=== PATIENT | female | born 1950 | race Hispanic/Latino ===

== ENCOUNTER 2018-02-01 22:46 | Emergency (ER) | payer OTHER ==
--- OUTSIDE RECORDS SUMMARY | 2018-02-01 22:49 | XMS REPORT ---
:1950 Author Organization eClinicalWorks Care Team Providers Name Role Phone Kenneth Savage Provider Role Unavailable Allergies No Known Allergies Problems Problem Type Condition Code Onset Dates Condition Status Problem Tobacco use disorder F17.200 Active Problem Malaise and fatigue R53.81 Active Problem Allergic rhinitis, seasonal J30.2 Active Problem Microalbuminuria R80.9 Active Problem Vitamin D deficiency E55.9 Active Problem Hyperlipidemia E78.5 Active Problem Thrombocytopenia D69.6 Active Problem Elevated liver enzymes R74.8 Active Problem Diabetes type 2, uncontrolled E11.65 Active Problem Osteoporosis M81.0 Active Assessment Vitamin D deficiency E55.9 Active Assessment Tobacco use disorder F17.200 Active Assessment Hyperlipidemia E78.5 Active Assessment Diabetes type 2, uncontrolled E11.65 Active Assessment Microalbuminuria R80.9 Active Assessment Osteoporosis M81.0 Active Problem Psoriasis, unspecified L40.9 Active Medications Medication Code Code Instructions Start End Status Dosage System Date Date Alendronate [facility] 05907848882 70 MG Orally Sept Active 1 tablet Sodium once weekly 2017 Janumet XR [facility] 29564574176 50-1000 MG Active 2 tablets Orally Once a with day evening meal Lipitor [facility] 37111500540 40 MG Orally Active 1 tablet Once a day Cozaar [facility] 65784798268 25 MG Orally Active 1 tablet Once a day Jardiance [facility] 70078137333 25 MG Orally Sept Active 1 tablet Once a day 2017 Results No Known Results Summary Purpose eClinicalWorks Submission
--- OUTSIDE RECORDS SUMMARY | 2018-02-01 22:49 | XMS REPORT ---
:1950 Author Organization eClinicalWorks Care Team Providers Name Role Phone Hussein Kenneth Provider Role Unavailable Allergies, Adverse Reactions, Alerts Substance Reaction Event Type penicillin Info Not Available Drug Allergy Lisinopril Info Not Available Drug Allergy Problems Problem Type Condition Code Onset Dates [...] Assessment Tobacco use disorder F17.200 Active Assessment Elevated BP without diagnosis of R03.0 Active hypertension Assessment Hyperlipidemia E78.5 Active Assessment Diabetes type 2, uncontrolled E11.65 Active Assessment Microalbuminuria R80.9 Active Assessment Osteoporosis M81.0 Active Problem Psoriasis, unspecified L40.9 Active Medications Medication Code Code Instructions Start End Status Dosage System Date Date XR [facility] 02206268774 50-1000 MG Active 2 tablets Orally Once a with day evening meal Jardiance [facility] 85172544538 25 MG Orally Feb 12, Active 1 tablet Once a day 2017 Cozaar [facility] 78039620361 25 MG Orally Active 1 tablet Once a day Alendronate [facility] 72440937739 70 MG Orally Feb 12, Active 1 tablet Sodium once weekly 2017 Lipitor [facility] 61244674563 40 MG Orally Active 1 tablet Once a day Results No Known Results Summary Purpose eClinicalWorks Submission
--- OUTSIDE RECORDS SUMMARY | 2018-02-01 22:49 | XMS REPORT ---
:1950 Author Organization eClinicalWorks Care Team Providers Name Role Phone Hussein Kenneth Provider Role Unavailable Allergies No Known Allergies Problems Problem Type Condition Code Onset Dates Condition Status Problem Tobacco use disorder F17.200 Active Problem Malaise and fatigue R53.81 Active Problem Allergic rhinitis, seasonal J30.2 Active Problem Psoriasis, unspecified L40.9 Active Problem Microalbuminuria R80.9 Active Problem Vitamin D deficiency E55.9 Active Problem Hyperlipidemia E78.5 Active Problem Thrombocytopenia D69.6 Active Problem Elevated liver enzymes R74.8 Active Problem Diabetes type 2, uncontrolled E11.65 Active Problem Osteoporosis M81.0 Active Medications No Known Medications Results No Known Results Summary Purpose eClinicalWorks Submission
[2018-02-01] MEDS ORDERED: FENTANYL CITR 100 MCG/2 ML ONE (23:53)
[2018-02-01] MEDS ORDERED: ONDANSETRON 4 MG/2 ML VIAL ONE (23:53)
[2018-02-02 00:34] LABS: Absolute Monocytes 0.4 K/uL (0.1-1.3); Absolute Neutrophil 3.8 K/uL (1.8-8.0); Basophils % 0.5 % (0-1.3); Eosinophils % 4.4 % (0-4.4); Hematocrit 39.9 % (36.0-45.0); Lymphocytes % 31.1 % (15.3-44.8); MCH 29.3 pg (27.0-35.0); MCV 84.2 fL (80-100); MPV 11.5 fL (7.6-11.3); Monocytes % 5.8 % (3.3-12.3); RBC Red Blood Cell Count 4.74 M/uL (3.86-4.86)
[2018-02-02 00:38] LABS: ALT/SGPT 29 U/L (12-78); AST/SGOT 27 U/L (15-37); Alkaline Phosphatase 65 U/L (45-117); BUN Blood Urea Nitrogen 18 mg/dL (7-18); Bicarbonate 28 mmol/L (21-32); Bilirubin Direct < 0.1 mg/dL (0-0.2); Bilirubin Total 0.4 mg/dL (0.2-1.0); Glucose Level 142 mg/dL (74-106); Lipase 478 U/L (73-393); Potassium 4.1 mmol/L (3.5-5.1); Protein, Total 7.6 g/dL (6.4-8.2); Sodium Level 133 mmol/L (136-145)
[2018-02-02 01:10] LABS: Urine Bacteria <20 /HPF (<20); Urine Culture Reflex Order NOT NEEDED; Urine RBC <5 /HPF (NONE SEEN)
[2018-02-02 01:15] LABS: Urine Blood NEGATIVE (NEG); Urine Glucose NEGATIVE (NEG); Urine Protein 2+ (NEG); Urine Specific Gravity 1.015 (1.005-1.030); Urine pH 5.5 (5.0-7.0)
--- NOTE | 2018-02-02 01:44 | EDPHYS ---
Physician Documentation [facility] Name: Carri Perez Age: 67 yrs Sex: Female : 1950 Arrival Date: 02/01/2018 Time: 22:49 Bed 26 Private MD: Kenneth Savage ED Physician Robert Carter HPI: 02/01 23:35 This 67 yrs old Female presents to ER via Wheelchair with complaints of Flank cp Pain. 23:35 The patient complains of pain in the right low back. cp 23:35 Onset: The symptoms/episode began/occurred 2 hour(s) ago. cp 23:35 Associated signs and symptoms: Pertinent negatives: diarrhea, dysuria, fever, urinary cp frequency, hematuria, pain radiating to the lower extremities, vomiting. Historical: - Allergies: 23:00 PENICILLINS; bb - Home Meds: 23:00 Unable to obtain [Active]; bb - PMHx: 23:00 Diabetes - NIDDM; bb - PSHx: 23:00 ; Appendectomy; bb - Immunization history:: Adult Immunizations unknown. - Social history:: Smoking status: Patient uses tobacco products, 4 or 5 daily. - Ebola Screening: : No symptoms or risks identified at this time. ROS: 23:40 Constitutional: Negative for body aches, chills, fever, poor PO intake. cp 23:40 Eyes: Negative for injury, pain, redness, and discharge. cp 23:40 ENT: Negative for drainage from ear(s), ear pain, sore throat, difficulty swallowing, difficulty handling secretions. 23:40 Cardiovascular: Negative for chest pain, edema, palpitations. 23:40 Respiratory: Negative for cough, shortness of breath, wheezing. 23:40 Abdomen/GI: Negative for abdominal pain, nausea, vomiting, and diarrhea, black/tarry stool, rectal bleeding. 23:40 Back: Positive for flank pain, on the right, Negative for injury or acute deformity, decreased range of motion. 23:40 MS/extremity: Negative for injury or acute deformity, decreased range of motion, pain, paresthesias. 23:40 Skin: Negative for cellulitis, rash. 23:40 Neuro: Negative for altered mental status, headache, numbness, weakness. 23:40 All other systems are negative. Exam: 23:47 Constitutional: The patient appears in no acute distress, alert, awake, non-toxic, well cp developed, well nourished, uncomfortable. 23:47 Head/Face: Normocephalic, atraumatic. cp 23:47 Eyes: Periorbital structures: appear normal, Conjunctiva: normal, no exudate, no injection, Sclera: no appreciated abnormality, Lids and lashes: appear normal, bilaterally. 23:47 ENT: External ear(s): are unremarkable, Nose: is normal, Mouth: Lips: moist, Oral mucosa: pink and intact, moist, Posterior pharynx: is normal, airway is patent, no erythema, no exudate. 23:47 Neck: External neck: is normal, ROM/movement: is normal, is supple, without pain, no range of motions limitations, no nuchal rigidity. 23:47 Chest/axilla: Inspection: normal, Palpation: is normal, no crepitus, no tenderness. 23:47 Cardiovascular: Rate: normal, Rhythm: regular, Edema: is not appreciated, JVD: is not appreciated. 23:47 Respiratory: the patient does not display signs of respiratory distress, Respirations: normal, no use of accessory muscles, no retractions, no splinting, no tachypnea, labored breathing, is not present, Breath sounds: are clear throughout, no decreased breath sounds, no stridor, no wheezing. 23:47 Abdomen/GI: Inspection: abdomen appears normal, Palpation: soft, in all quadrants, moderate abdominal tenderness, in the posterior aspect of right lateral abdomen, anterior aspect of right lateral abdomen and right lower quadrant. 23:47 Back: pain, that is moderate, of the right low back, vertebral tenderness, is not appreciated, Straight leg raises: of both lower extremities does not illicit pain. 23:47 Musculoskeletal/extremity: Exam is negative for calf tenderness, decreased range of motion, injury, Perfusion: the patient is normally perfused throughout, Sensation intact. 23:47 Skin: cellulitis, is not appreciated, no rash present. 23:47 Neuro: Orientation: to person, place \T\ time. Mentation: is normal, Cerebellar function: is grossly normal, Motor: moves all fours, strength is normal, Sensation: is normal. Vital Signs: 23:00 BP 113 / 93; Pulse 74; Resp 18 S; Temp 97.8(O); Pulse Ox 100% on R/A; Weight 67.13 kg bb (R); Height 5 ft. 1 in. (154.94 cm) (R); Pain 10; 02/02 01:00 BP 131 / 77; Pulse 64; Resp 18; Pulse Ox 97% on R/A; Pain 3/10; mg2 02/01 23:00 Body Mass Index 27.96 (67.13 kg, 154.94 cm) bb 01:00 only when she moves mg2 MDM: 02/01 23:18 Patient medically screened. cp 02/02 00:00 Differential diagnosis: nephrolithiasis, pyelonephritis, UTI, diverticulitis, ruptured cp AAA, dissecting AAA, strain. 01:42 Data reviewed: vital signs, nurses notes, lab test result(s), radiologic studies, CT cp scan, and as a result, I will discharge patient. 01:42 Counseling: I had a detailed discussion with the patient and/or guardian regarding: the cp historical points, exam findings, and any diagnostic results supporting the discharge/admit diagnosis, lab results, radiology results, to return to the emergency department if symptoms worsen or persist or if there are any questions or concerns that arise at home. Response to treatment: the patient's symptoms have mildly improved after treatment. 02/01 23:33 Order name: Urine Dipstick--Ancillary (enter results); Complete Time: :33 mw2 02/02 01:33 Interpretation: Normal except: UPROT 2+. cp 02/01 23:38 Order name: Basic Metabolic Panel; Complete Time: 01:33 cp 02/02 01:33 Interpretation: Normal except: NA 133; CL 97; GLUC 142; GFR 71. 02/01 23:38 Order name: CBC with Diff; Complete Time: 01:33 cp 02/02 01:33 Interpretation: Normal except: PLT 127; MPV 11.5. cp 02/01 23:38 Order name: Creatinine for Radiology; Complete Time: : cp 02/01 23:38 Order name: Hepatic Function; Complete Time: 01: cp 02/02 01:34 Interpretation: Normal except: GLOB 3.6. cp 02/01 23:38 Order name: Lipase; Complete Time: 01: cp 02/01 23:38 Order name: Urine Microscopic Only; Complete Time: : cp 02/01 23:38 Order name: CT Stone Protocol cp 02/01 23:38 Order name: IV Saline Lock; Complete Time: 23:44 cp 02/01 23:38 Order name: Labs collected and sent; Complete Time: 23:44 cp 02/02 01:38 Order name: PO challenge; Complete Time: 01:56 cp Administered Medications: 02/01 23:52 Drug: Zofran 4 mg Route: IVP; Site: right antecubital; mg2 02/02 02:04 Follow up: Response: No adverse reaction; Marked relief of symptoms mg2 02/01 23:53 Drug: fentaNYL (PF) 25 mcg Route: IVP; Site: right antecubital; mg2 02/02 02:04 Follow up: Response: No adverse reaction; Marked relief of symptoms mg2 01:45 Not Given (Physician Discretion): HYDROcodone-acetaminophen 5 mg-325 mg 1 tabs PO once cp 01:55 Not Given (patient discharge already): TORadol 30 mg IVP once mg2 01:56 Drug: Flexeril 10 mg Route: PO; mg2 02:04 Follow up: Response: No adverse reaction; Medication administered at discharge. mg2 01:56 Drug: HYDROcodone-acetaminophen 5 mg-325 mg 1 tabs Route: PO; mg2 02:12 Follow up: Response: No adverse reaction; Medication administered at discharge. mg2 Disposition: 02/02/18 01:43 Discharged to Home. Impression: Low back pain - Right, Cholelithiasis. - Condition is Stable. - Discharge Instructions: Back Pain, Adult, Cholelithiasis, Back Exercises, [id number]. - Prescriptions for Anaprox DS 550 mg Oral Tablet - take 1 tablet by ORAL route every 12 hours As needed; 20 tablet. Tramadol 50 mg Oral Tablet - take 1 tablet by ORAL route every 8 hours As needed as needed; 15 tablet. - Medication Reconciliation Form, Thank You Letter, Antibiotic Education, Prescription Opioid Use form. - Follow up: Kenneth Savage, DO; When: 2 - 3 days; Reason: Recheck today's complaints. - Problem is new. - Symptoms have improved. Signatures: Dispatcher [employer] Marii Sterling RN RN Mathew Pearl PA PA Ross Blood RN RN mg2 Corrections: (The following items were deleted from the chart) 02:12 01:43 02/02/2018 01:43 Discharged to Home. Impression: Low back pain - Right; mg2 Cholelithiasis. Condition is Stable. Forms are Medication Reconciliation Form, Thank You Letter, Antibiotic Education, Prescription Opioid Use. Follow up: Kenneth Savage; When: 2 - 3 days; Reason: Recheck today's complaints. Problem is new. Symptoms have improved. cp
--- NOTE | 2018-02-02 01:44 | ER ---
Nurse's Notes [facility] Name: Carri Perez Age: 67 yrs Sex: Female : 1950 Arrival Date: 02/01/2018 Time: 22:49 Bed 26 Private MD: Kenneth Savage Diagnosis: Low back pain-Right;Cholelithiasis Presentation: 02/01 22:58 Presenting complaint: Patient states: she started having right flank pain which is bb intermittent and sharp approx 2 hours ago pt denies urinary symptoms and denies vomiting or diarrhea. Transition of care: patient was not received from another setting of care. Onset of symptoms was February 01, 2018. Risk Assessment: Do you want to hurt yourself or someone else? Patient reports no desire to harm self or others. Initial Sepsis Screen: Does the patient meet any 2 criteria? No. Patient's initial sepsis screen is negative. Does the patient have a suspected source of infection? No. Patient's initial sepsis screen is negative. Care prior to arrival: None. 22:58 Method Of Arrival: Wheelchair bb 22:58 Acuity: ELOISE 3 bb Historical: - Allergies: 23:00 PENICILLINS; bb - Home Meds: 23:00 Unable to obtain [Active]; bb - PMHx: 23:00 Diabetes - NIDDM; bb - PSHx: 23:00 ; Appendectomy; bb - Immunization history:: Adult Immunizations unknown. - Social history:: Smoking status: Patient uses tobacco products, 4 or 5 daily. - Ebola Screening: : No symptoms or risks identified at this time. Screenin:53 Abuse screen: Denies threats or abuse. Denies injuries from another. Nutritional mg2 screening: No deficits noted. Tuberculosis screening: No symptoms or risk factors identified. Fall Risk IV access (20 points). Assessment: 23:54 General: Appears uncomfortable, Behavior is calm, cooperative. Pain: Complains of pain mg2 in lower abdomen and right flank Pain does not radiate. Pain currently is 8 out of 10 on a pain scale. Quality of pain is described as aching, Pain began gradually, Is intermittent. Neuro: Level of Consciousness is awake, alert, obeys commands, Oriented to person, place, time, situation. Cardiovascular: Capillary refill < 3 seconds Patient's skin is warm and dry. GI: Reports lower abdominal pain. 23:55 Respiratory: Airway is patent Respiratory effort is even, unlabored, Respiratory mg2 pattern is regular, symmetrical. : Urine is clear. EENT: No signs and/or symptoms were reported regarding the EENT system. Derm: Skin is intact, is healthy with good turgor, Skin is pink, warm \T\ dry. normal. Musculoskeletal: Circulation, motion, and sensation intact. Capillary refill < 3 seconds. Vital Signs: 23:00 BP 113 / 93; Pulse 74; Resp 18 S; Temp 97.8(O); Pulse Ox 100% on R/A; Weight 67.13 kg bb (R); Height 5 ft. 1 in. (154.94 cm) (R); Pain 10; 02/02 01:00 BP 131 / 77; Pulse 64; Resp 18; Pulse Ox 97% on R/A; Pain 3/10; mg2 02/01 23:00 Body Mass Index 27.96 (67.13 kg, 154.94 cm) bb 01:00 only when she moves mg2 ED Course: 02/01 22:49 Patient arrived in ED. es 22:49 Kenneth Savage DO is Private Physician. es 22:59 Triage completed. bb 23:00 Arm band placed on Patient placed in waiting room. Family accompanied patient. bb 23:18 Mathew Olivas PA is PHCP. cp 23:18 Robert Carter MD is Attending Physician. cp 23:34 Ross Reinoso RN is Primary Nurse. mg2 23:53 No provider procedures requiring assistance completed. Inserted saline lock: 20 gauge mg2 in right antecubital area, using aseptic technique. Blood collected. 23:55 Patient has correct armband on for positive identification. Pulse ox on. NIBP on. mg2 23:[address] via wheelchair. kw1 02/02 00:07 CT completed. Patient tolerated procedure well. Patient moved back from CT. kw1 00:08 CT Stone Protocol In Process Unspecified. EDMS 01:42 Kenneth Savage DO is Referral Physician. cp 02:05 IV discontinued, intact, bleeding controlled, No redness/swelling at site. Pressure mg2 dressing applied. Administered Medications: 02/01 23:52 Drug: Zofran 4 mg Route: IVP; Site: right antecubital; mg2 02/02 02:04 Follow up: Response: No adverse reaction; Marked relief of symptoms mg2 02/01 23:53 Drug: fentaNYL (PF) 25 mcg Route: IVP; Site: right antecubital; mg2 02/02 02:04 Follow up: Response: No adverse reaction; Marked relief of symptoms mg2 01:45 Not Given (Physician Discretion): HYDROcodone-acetaminophen 5 mg-325 mg 1 tabs PO once cp 01:55 Not Given (patient discharge already): TORadol 30 mg IVP once mg2 01:56 Drug: Flexeril 10 mg Route: PO; mg2 02:04 Follow up: Response: No adverse reaction; Medication administered at discharge. mg2 01:56 Drug: HYDROcodone-acetaminophen 5 mg-325 mg 1 tabs Route: PO; mg2 02:12 Follow up: Response: No adverse reaction; Medication administered at discharge. mg2 Outcome: 01:43 Discharge ordered by MD. cp 02:05 Discharged to home via wheelchair, with family. mg2 02:05 Condition: stable 02:05 Discharge instructions given to patient, family, Instructed on discharge instructions, follow up and referral plans. medication usage, Demonstrated understanding of instructions, follow-up care, medications, Prescriptions given X 2. 02:12 Patient left the ED. mg2 Signatures: Dispatcher [employer] Sheron Pelayo Brenda, RN RN Mathew Pearl PA PA cp Wilhelm, Kimberly kw1 Ross Reinoso RN RN mg2
[2018-02-02] MEDS ORDERED: CYCLOBENZAPRINE 10 MG TAB ONE (01:55)
[2018-02-02] MEDS ORDERED: HYDROCODONE/APAP 5/325 MG TAB ONE (01:55)
--- NOTE | 2018-02-02 11:30 | RAD REPORT ---
EXAM DESCRIPTION: CT - Stone Protocol - 02/02/2018 5:57 am CLINICAL HISTORY: Flank pain. FLANK PAIN COMPARISON: CT ABD PELVIS W CONTRAST dated 07/09/2008 TECHNIQUE: Axial images were obtained without oral or IV contrast. Lack of contrast limits solid org an and vascular assessment. The [id number] spans the entirety of the system partially obscuring uppermost abdomen and lung bases. Coronal reformatted images were obtained and reviewed. All CT scans are performed using dose optimization technique as appropriate and may include automated exposure control or mA/KV adjustment according to patient size. FINDINGS: The lower lung montero are clear. Cholelithiasis. Imaged portions of the liver and spleen show no suspicious findings on non-contrast imaging. The panc reas and right adrenal gland are normal.1.5 cm left adrenal adenoma. No pathologic lymphadenopathy in the abdomen or pelvis. No urinary tract stones or obstructive uropathy. No bowel obstruction, free air, free fluid or abscess. Appendectomy. Moderate lumbar degenerative changes. IMPRESSION: No urinary tract stones or obstructive uropathy. Cholelithiasis.
== END 2018-02-02 02:12 | disposition home or self-care (01) ==
LOC: ER 22:46
DX: K80.20 Calculus of gallbladder without cholecystitis without obstruction (principal); Z88.0 Allergy status to penicillin; Z72.0 Tobacco use
CPT/HCPCS: 36415; 74176; 76377; 80048; 80076; 83690; 85025; 96374; 96375; 99284; J2405; J3010; 81003; 81015

== ENCOUNTER 2018-08-10 00:23 | Emergency (ER) | payer OTHER ==
--- OUTSIDE RECORDS SUMMARY | 2018-08-10 00:26 | XMS REPORT ---
[...] End Status Dosage System Date Date Alendronate [facility] 06791795653 70 MG Orally Sept Active 1 tablet Sodium once weekly 2017 Janumet XR [facility] 76821197561 50-1000 MG Active 2 tablets Orally Once a with day evening meal Lipitor [facility] 30935958278 40 MG Orally Active 1 tablet Once a day Cozaar [facility] 58306855458 25 MG Orally Active 1 tablet Once a day Jardiance [facility] 37750280884 25 MG Orally Sept Active 1 tablet Once a day 2017 Results No Known Results Summary Purpose eClinicalWorks Submission
--- OUTSIDE RECORDS SUMMARY | 2018-08-10 00:27 | XMS REPORT ---
:1950 Author Organization eClinicalWorks Care Team Providers Name Role Phone Trey Savageh Provider Role Unavailable Allergies, Adverse Reactions, Alerts Substance Reaction Event Type penicillin Info Not Available Drug Allergy Lisinopril Info Not Available Drug Allergy Problems Problem Type Condition Code Onset Dates Condition Status Problem Malaise and fatigue R53.81 Active Problem Thrombocytopenia D69.6 Active Problem Elevated liver enzymes R74.8 Active Problem Psoriasis, unspecified L40.9 Active Assessment Type 2 diabetes mellitus with other E11.29 Active diabetic kidney complication Problem Hyperlipidemia E78.5 Active Problem Type 2 diabetes mellitus with other E11.29 Active diabetic kidney complication Problem Diabetes type 2, uncontrolled E11.65 Active Problem Osteoporosis M81.0 Active Problem Microalbuminuria R80.9 Active Problem Vitamin D deficiency E55.9 Active Assessment Tobacco use disorder F17.200 Active Assessment Osteoporosis M81.0 Active Assessment Elevated BP without diagnosis of R03.0 Active hypertension Assessment Vitamin D deficiency E55.9 Active Assessment Diabetes type 2, uncontrolled E11.65 Active Assessment Hyperlipidemia E78.5 Active Problem Tobacco use disorder F17.200 Active Assessment Proteinuria, unspecified R80.9 Active Problem Allergic rhinitis, seasonal J30.2 Active Medications Medication Code System Code Instructions Start End Date Status Dosage Date XR [facility] 10517338408 50-1000 MG Active 2 tablets Orally Once a with day evening meal Jardiance [facility] 48880170728 25 MG Orally Active 1 tablet Once a day Jardiance [facility] 53560025379 25 MG Orally May 14, August 12, Active 1 tablet Once a day 2018 2018 Cozaar [facility] 17464895257 25 MG Orally Active 1 tablet Once a day Lipitor [facility] 50871329251 40 MG Orally Active 1 tablet Once a day Results No Known Results Summary Purpose eClinicalWorks Submission
--- OUTSIDE RECORDS SUMMARY | 2018-08-10 00:27 | XMS REPORT ---
[...] System Date Date XR [facility] 12688710040 50-1000 MG Active 2 tablets Orally Once a with day evening meal Jardiance [facility] 90540167843 25 MG Orally Feb 12, Active 1 tablet Once a day 2017 Cozaar [facility] 79759830692 25 MG Orally Active 1 tablet Once a day Alendronate [facility] 11343384759 70 MG Orally Feb 12, Active 1 tablet Sodium once weekly 2017 Lipitor [facility] 03715104880 40 MG Orally Active 1 tablet Once a day Results No Known Results Summary Purpose eClinicalWorks Submission
[2018-08-10] MEDS ORDERED: MEPERIDINE HCL 50 MG/ML AMP ONE (02:49)
[2018-08-10] MEDS ORDERED: ONDANSETRON 4 MG/2 ML VIAL ONE (02:49)
--- NOTE | 2018-08-10 06:03 | ER ---
Nurse's Notes [facility] Name: Carri Perez Age: 68 yrs Sex: Female : 1950 Arrival Date: 08/10/2018 Time: 00:27 Bed 25 Private MD: Diagnosis: Cervical spondylosis Presentation: 08/10 00:44 Presenting complaint: Patient states: I am having neck pain for the last three days. la1 Transition of care: patient was not received from another setting of care. Onset of symptoms was August 10, 2018. Risk Assessment: Do you want to hurt yourself or someone else? Patient reports no desire to harm self or others. Initial Sepsis Screen: Does the patient meet any 2 criteria? No. Patient's initial sepsis screen is negative. Does the patient have a suspected source of infection? No. Patient's initial sepsis screen is negative. Care prior to arrival: None. 00:44 Method Of Arrival: Ambulatory la1 00:44 Acuity: ELOISE 4 la1 Historical: - Allergies: 00:45 PENICILLINS; la1 - PMHx: 00:45 Diabetes - NIDDM; la1 - Immunization history:: Adult Immunizations up to date. - Social history:: Smoking status: Patient uses tobacco products, denies chronic smoking, but will smoke occasionally. - Ebola Screening: : No symptoms or risks identified at this time. Screenin:20 Abuse screen: Denies threats or abuse. Denies injuries from another. Nutritional mg2 screening: No deficits noted. Tuberculosis screening: No symptoms or risk factors identified. Fall Risk None identified. Assessment: 01:32 General: Appears in no apparent distress. comfortable, Behavior is calm, cooperative. mg2 Pain: Complains of pain in nape Pain does not radiate. Pain currently is 6 out of 10 on a pain scale. Quality of pain is described as aching, Pain began gradually, 2-3 days ago. Is intermittent. Neuro: Level of Consciousness is awake, alert, obeys commands, Oriented to person, place, time, situation. Cardiovascular: Capillary refill < 3 seconds Patient's skin is warm and dry. Respiratory: Airway is patent Respiratory effort is even, unlabored, Respiratory pattern is regular, symmetrical. GI: No signs and/or symptoms were reported involving the gastrointestinal system. : No signs and/or symptoms were reported regarding the genitourinary system. EENT: Reports pain in right eye and left eye. Derm: Skin is intact, is healthy with good turgor, Skin is pink, warm \T\ dry. normal. Musculoskeletal: Circulation, motion, and sensation intact. Capillary refill < 3 seconds, Swelling present in back of neck Reports pain in back of neck. 03:30 Reassessment: Patient is alert, oriented x 3, equal unlabored respirations, skin fu warm/dry/pink. 04:30 Reassessment: Patient is alert, oriented x 3, equal unlabored respirations, skin fu warm/dry/pink. Vital Signs: 00:45 Pulse 83; Resp 16; Temp 97.6; Pulse Ox 100% on R/A; Weight 65.77 kg; Height 5 ft. 1 in. la1 (154.94 cm); Pain 10/10; 00:47 BP 124 / 50; la1 01:35 BP 120 / 53; Pulse 77; Resp 18; Temp 98(O); Pulse Ox 100% on R/A; mg2 02:36 BP 119 / 54; Pulse 80; Resp 19; Pulse Ox 98% ; Pain 8/10; fu 05:58 BP 117 / 54; Pulse 70; Resp 16; Pain 6/10; fu 00:45 Body Mass Index 27.40 (65.77 kg, 154.94 cm) la1 ED Course: 00:27 Patient arrived in ED. es 00:45 Triage completed. la1 00:46 Arm band placed on left wrist. la1 01:20 Ross Reinoso RN is Primary Nurse. mg2 01:20 No provider procedures requiring assistance completed. Patient did not have IV access mg2 during this emergency room visit. 01:34 Patient has correct armband on for positive identification. Pulse ox on. NIBP on. Door mg2 closed. Warm blanket given. 02:18 Robert Carter MD is Attending Physician. pkl 03:16 Primary Nurse role handed off by Ross Reinoso RN fu 03:16 James Ruffin, KADEEM is Primary Nurse. fu 04:30 CT C Spine In Process Unspecified. EDMS 05:49 Appears to be sleeping. fu 06:05 Dr. Carter in patient's room. fu Administered Medications: 02:42 Drug: Zofran 4 mg Route: IM; Site: left deltoid; fu 02:44 Drug: Demerol 50 mg Route: IM; Site: right deltoid; fu 06:07 Drug: [place] (7.5 mg-325 mg) 1 tabs Route: PO; fu Outcome: 06:03 Discharge ordered by . marques 06:09 Discharged to home ambulatory, with family. fu 06:09 Condition: stable 06:09 Discharge instructions given to patient, Instructed on discharge instructions, follow up and referral plans. Demonstrated understanding of instructions, medications, Prescriptions given X 2. 06:17 Patient left the ED. fu Signatures: Dispatcher [employer] Robert Valladares MD MD pkl Salyer, Edna es Attema, Lee RN RN la1 James Ruffin RN RN fu Gardose, Michele, RN RN mg2
--- NOTE | 2018-08-10 06:04 | EDPHYS ---
Physician Documentation [facility] Name: Carri Perez Age: 68 yrs Sex: Female : 1950 Arrival Date: 08/10/2018 Time: 00:27 Bed 25 Private MD: ED Physician Robert Carter HPI: 08/10 02:31 This 68 yrs old Female presents to ER via Ambulatory with complaints of Neck pkl Problem. 02:31 The patient or guardian complains of decreased range of motion, pain, that is acute. pkl The symptoms are located right side neck. Onset: The symptoms/episode began/occurred 3 day(s) ago. Associated signs and symptoms: The patient has no apparent associated signs or symptoms. Historical: - Allergies: 00:45 PENICILLINS; la1 - PMHx: 00:45 Diabetes - NIDDM; la1 - Immunization history:: Adult Immunizations up to date. - Social history:: Smoking status: Patient uses tobacco products, denies chronic smoking, but will smoke occasionally. - Ebola Screening: : No symptoms or risks identified at this time. ROS: 02:31 Eyes: Negative for injury, pain, redness, and discharge, ENT: Negative for injury, pkl pain, and discharge. 02:31 Neck: Positive for pain with movement, of the right side neck. Exam: 02:31 Head/Face: Normocephalic, atraumatic. Eyes: Pupils equal round and reactive to light, pkl extra-ocular motions intact. Lids and lashes normal. Conjunctiva and sclera are non-icteric and not injected. Cornea within normal limits. Periorbital areas with no swelling, redness, or edema. ENT: Nares patent. No nasal discharge, no septal abnormalities noted. Tympanic membranes are normal and external auditory canals are clear. Oropharynx with no redness, swelling, or masses, exudates, or evidence of obstruction, uvula midline. Mucous membranes moist. 02:31 Neck: ROM/movement: pain, that is moderate, with rotation to the right. 02:31 Chest/axilla: Exam negative for acute changes. 02:31 Cardiovascular: Rate: normal, Rhythm: regular. 02:31 Respiratory: the patient does not display signs of respiratory distress, Respirations: normal, Breath sounds: are clear throughout. 02:31 Abdomen/GI: Bowel sounds: normal, Palpation: abdomen is soft and non-tender, in all quadrants. 02:31 Back: Exam negative for acute changes. 02:31 : Exam negative for acute changes. 02:31 Musculoskeletal/extremity: Exam is negative for acute changes. 02:31 Skin: Exam negative for rash. 02:31 Neuro: Orientation: is normal, Mentation: is normal, Cranial nerves: grossly normal, Motor: is normal. Vital Signs: 00:45 Pulse 83; Resp 16; Temp 97.6; Pulse Ox 100% on R/A; Weight 65.77 kg; Height 5 ft. 1 in. la1 (154.94 cm); Pain 10/10; 00:47 BP 124 / 50; la1 01:35 BP 120 / 53; Pulse 77; Resp 18; Temp 98(O); Pulse Ox 100% on R/A; mg2 02:36 BP 119 / 54; Pulse 80; Resp 19; Pulse Ox 98% ; Pain 8/10; fu 05:58 BP 117 / 54; Pulse 70; Resp 16; Pain 6/10; fu 00:45 Body Mass Index 27.40 (65.77 kg, 154.94 cm) la1 MDM: 02:18 Patient medically screened. pkl 02:35 Data reviewed: vital signs, nurses notes. pkl 06:01 Data reviewed: radiologic studies, CT scan. pkl 06:04 ED course: Discussed CT Scan result with patient. Advised MRI cervical spines if pkl symptoms not better. Patient understood.. 08/10 02:22 Order name: CT C Spine pkl Administered Medications: 02:42 Drug: Zofran 4 mg Route: IM; Site: left deltoid; fu 02:44 Drug: Demerol 50 mg Route: IM; Site: right deltoid; fu 06:07 Drug: [place] (7.5 mg-325 mg) 1 tabs Route: PO; fu Disposition: 08/10/18 06:03 Discharged to Home. Impression: Cervical spondylosis. - Condition is Stable. - Prescriptions for Ultram 50 mg Oral Tablet - take 1 tablet by ORAL route every 8 hours As needed; 30 tablet. Diclofenac Sodium 75 mg Oral Tablet Sustained Release - take 1 tablet by ORAL route 2 times per day; 30 tablet. - Medication Reconciliation Form, Thank You Letter, Antibiotic Education, Prescription Opioid Use form. - Follow up: Private Physician; When: 2 - 3 days; Reason: Re-evaluation by your physician. - Problem is new. - Symptoms have improved. Signatures: Dispatcher [employer] Robert Valladares MD MD pkl Dwight Baker RN RN la1 James Ruffin RN RN fu Corrections: (The following items were deleted from the chart) 06:17 06:03 08/10/2018 06:03 Discharged to Home. Impression: Cervical spondylosis. Condition fu is Stable. Forms are Medication Reconciliation Form, Thank You Letter, Antibiotic Education, Prescription Opioid Use. Follow up: Private Physician; When: 2 - 3 days; Reason: Re-evaluation by your physician. Problem is new. Symptoms have improved. pkl
[2018-08-10] MEDS ORDERED: HYDROCODONE/APAP 7.5/325 MG TAB ONE (06:18)
--- NOTE | 2018-08-12 10:45 | RAD REPORT ---
EXAM DESCRIPTION: CT - C Spine Wo Con - 08/10/2018 4:29 am CLINICAL HISTORY: The patient is 68 years old and is Female; PAIN TECHNIQUE: Axial computed tomography images of the cervical spine without intravenous contrast. Royer nal reformatted images were created and reviewed. This CT exam was performed using one or more of t he following dose reduction techniques: automated exposure control, adjustment of the mA and/or kV according to patient size, and/or use of iterative reconstruction technique. COMPARISON: No relevant prior studies available. FINDINGS: VERTEBRAE: The vertebral body heights and alignment are maintained. No acute fracture. DISCS/SPINAL CANAL/NEURAL FORAMINA: There is multi-level intervertebral disc height loss. There are disc-osteophyte complexes at several levels, with associated mild spinal canal narrowing. There i s also facet hypertrophy and uncovertebral joint osteophytosis, with associated multilevel neural for aminal narrowing. SOFT TISSUES: The soft tissues are normal. LUNG APICES: The lung apices are clear. IMPRESSION: Examination is slightly limited secondary to the lack sagittal reconstructions. Spondylosis of the cervical spine without acute findings. Electronically signed by: Leslie Black MD 08/10/2018 5:32 AM CDT Due to temporary technical issues with the PACS/Fluency reporting system, reports are being signed by the in house radiologist as a courtesy to ensure prompt reporting. The interpreting radiologist is f ully responsible for the content of the report.
== END 2018-08-10 06:17 | disposition home or self-care (01) ==
LOC: ER 00:23
DX: M47.812 Spondylosis without myelopathy or radiculopathy, cervical region (principal); E11.9 Type 2 diabetes mellitus without complications; Z88.0 Allergy status to penicillin
CPT/HCPCS: 72125; 96372; 99284; J2175; J2405

== ENCOUNTER 2020-06-17 17:33 | Emergency (ER) | payer OTHER ==
--- OUTSIDE RECORDS SUMMARY | 2020-06-17 17:35 | XMS REPORT | Continuity of Care Document ---
:1950 Author Organization [facility] t Address [address] [place] [address] Care Team Providers Name Role Phone Unavailable Unavailable Unavailable Problems Condition Condition Condition Status Onset Resolution Last Treating Co mments Source Name Details Category Date Date Treatment Clinician Date Tobacco Tobacco Problem Active [facility] disorder disorder [facility] Malaise Malaise Problem Active [facility] - fatigue fatigue [facility] Allergic Allergic Problem Active [facility] rhinitis, rhinitis, [facility] - seasonal seasonal [facility] a l [facility] Proteinuri Proteinuri Diagnosis Active [facility] a, a, [facility] - unspecifie unspecifie Me moria d d l Outpat[facility] ent Clinics Vitamin D Vitamin D Diagnosis Active [facility] deficiency deficiency Beth kes - [facility] Hyperlipid Hyperlipid Diagnosis Active [facility] emia emia [facility] Thrombocyt Thrombocyt Problem Active [facility] openia openia [facility] Elevated Elevated Problem Active [facility] liver liver [facility] - enzymes enzymes [facility] Diabetes Diabetes Diagnosis Active [facility] type 2, type 2, [facility] - uncontroll uncontroll Me moria ed ed l [facility] Osteoporos Osteoporos Diagnosis Active [facility] is is [facility] Psoriasis, Psoriasis, Problem Active [facility] unspecifie unspecifie Beth kes - d d [facility] l [facility] ent [facility] Type 2 Type [address] [facility] diabetes diabetes [facility] - mellitus mellitus Memori a with other with other l diabetic diabetic Outpat i kidney kidney ent complicati complicati Cl inics on on Noncomplia Noncomplia Diagnosis Active [facility] nce nce [facility] - w/medicati w/medicati Me moria on on l treatment treatment Outp ati due to due to ent intermit intermit Clinic s use of use of medication medication Hypoalbumi Hypoalbumi Problem Active [facility] nemia nemia [facility] - Memoria l [facility] Malnutriti Malnutriti Problem Active [facility] on, on, [facility] - unspecifie unspecifie Me moria d type d type l [facility] Essential Essential Problem Active [facility] hypertensi hypertensi Beth kes - on on Memoria l [facility] Allergies, Adverse Reactions, Alerts Allergy Allergy Status Severity Reaction(s) Onset Inactive Treating Comm ents Source Name Type Date Date Clinician penicill Adverse Active Info Not [facility] Reaction Available [facility] Lisinopr Adverse Active Info Not [facility] il Reaction Available [facility] Medications Ordered Filled Start Stop Current Ordering Indication Dosage Frequency Signature Comments Components Source Medication Medication Date Date Medication? Clinician (SIG) Name Name Janumet XR Janumet XR Yes Kenneth [address] [facility] - evening Memoria meal l [facility] Lipitor Lipitor Yes Kenneth [address] [facility] Cozaar Cozaar Yes Kenneth 1 tablet [facility] Jardiance Jardiance Yes Kenneth [address] [facility] Procedures This patient has no known procedures. Encounters Start End Encounter Admission Attending Care Care Encounter Source Date/Time Date/Time Type Type Clinicians Facility Department ID 2019-11-09 2019-11-09 [facility] [id number] [facility] 10:30:00 10:30:00 [place] 2019-11-02 2019-11-02 [facility] [id number] [facility] [address] 08:45:00 08:45:00 t [facility] 2019-07-16 2019-07-16 [facility] [id number] 10:00:00 10:00:00 [place] [facility] 2018-05-14 2018-05-14 [facility] [id number] 16:00:00 16:00:00 [place] [facility] [email or web address] [facility] Outpati ent Clinics 2017-11-14 2017-11-14 [facility] [id number] 13[facility]45:00 13:45:00 t [employer] - [email or web address] [facility] Outpat[facility] ent Clinics 2017-11-06 2017-11-06 [facility] [id number] 11:46:00 11:46:00 t [facility] Outpat[facility] Clinics 2017-11-04 2017-11-04 [facility] [id number] 14:22:00 14:22:00 t [facility] Outpat[facility] Clinics 2017-10-18 2017-10-18 [facility] [id number] 09[facility]00:00 09:00:00 t [facility] Outpat[facility] ent Clinics Results This patient has no known results.
[2020-06-17 18:14] LABS: Absolute Lymphocytes (CBC) 0.8 K/uL (0.7-4.9); Basophils % 0.3 % (0-1.3); Lymphocytes % 6.5 % (15.3-44.8); MPV 9.6 fL (7.6-11.3); RBC Red Blood Cell Count 5.17 M/uL (3.86-4.86)
[2020-06-17 18:40] LABS: Albumin 3.2 g/dL (3.4-5.0); Bilirubin Direct 0.1 mg/dL (0-0.2); Bilirubin Total 0.4 mg/dL (0.2-1.0); Potassium 3.4 mmol/L (3.5-5.1)
[2020-06-17 18:49] LABS: Blood Morphology Comment NOT SEEN (NOT SEEN); Platelet Estimate ADEQ
[2020-06-17] MEDS ORDERED: KCL 20 MEQ/100 mL IVPB 20 MEQ/100 ML BAG IV ONE (19:33)
[2020-06-17] MEDS ORDERED: NA CHLORIDE 0.9% 0 ML ONE (19:33)
[2020-06-17] MEDS ORDERED: PIPER/TAZO/NS 3.375gm 3.375 GM/100 ML BAG ONE (19:33)
[2020-06-17] MEDS ORDERED: NA CHLORIDE 0.9% 100 ML ONE (19:46)
--- NOTE | 2020-06-17 20:08 | RAD REPORT ---
EXAM DESCRIPTION: CT - Abdomen Pelvis W Contrast - 06/17/2020 7:53 pm CLINICAL HISTORY: Abdominal pain COMPARISON: 2008 and 1999 TECHNIQUE: Computed axial tomography of the abdomen pelvis was obtained. 100 cc Isovue-300 was admin istered intravenously. Oral contrast was not requested which limits evaluation of bowel. All CT scans are performed using dose optimization technique as appropriate and may include automated exposure control or mA/KV adjustment according to patient size. FINDINGS: The liver, spleen, pancreas, right adrenal and kidneys appear unremarkable. Small left adrenal mass unchanged consistent with an adenoma. Multiple gallstones. The gallbladder wall is not thickened. There is no evidence of diverticulitis. Fluid throughout nondilated small bowel Atherosclerosis is noted. IMPRESSION: Cholelithiasis without evidence cholecystitis Fluid throughout nondilated small bowel may indicate an enteritis
--- NOTE | 2020-06-17 20:08 | RAD REPORT ---
EXAM DESCRIPTION: US - Abdomen Exam Limited - 06/17/2020 6:48 pm CLINICAL HISTORY: Abdominal pain./right upper quadrant COMPARISON: None. FINDINGS: Multiple gallstones. The gallbladder wall is not thickened The biliary tree is normal caliber. IMPRESSION: Cholelithiasis without evidence cholecystitis
[2020-06-17] MEDS ORDERED: FAMOTIDINE 20 MG/2 ML VIAL IV ONE (20:26)
[2020-06-17 21:00] LABS: Urine Blood 1+ (Negative); Urine Glucose Negative (Negative); Urine Protein 3+ (Negative)
--- NOTE | 2020-06-17 21:03 | EDPHYS ---
Physician Documentation [facility] Name: Carri Perez Age: 70 yrs Sex: Female : 1950 Arrival Date: 06/17/2020 Time: 17:34 Bed 2 Private MD: Hussein [facility] ED Physician Shanda Foote HPI: 06/17 17:44 This 70 yrs old Female presents to ER via EMS with complaints of upper abd ma2 pain . 17:44 Onset: The symptoms/episode began/occurred gradually, 2 day(s) ago. Associated signs ma2 and symptoms: Pertinent positives: nausea, vomiting, and diarrhea, Pertinent negatives: blood in stools, shortness of breath, vaginal discharge. Severity of pain: At its worst the pain was moderate in the emergency department the pain is unchanged. The patient has not experienced similar symptoms in the past, The patient has experienced a previous episode. Historical: - Allergies: 17:44 PENICILLINS; jl7 - PMHx: 17:44 Diabetes - NIDDM; jl7 - Immunization history:: Adult Immunizations unknown. - Social history:: Smoking status: unknown. - Family history:: not pertinent. ROS: 17:44 Constitutional: Negative for fever, chills, and weight loss. ma2 17:44 All other systems are negative. Exam: 17:44 Constitutional: This is a well developed, well nourished patient who is awake, alert, ma2 and in no acute distress. Chest/axilla: Normal chest wall appearance and motion. Nontender with no deformity. No lesions are appreciated. Cardiovascular: Regular rate and rhythm with a normal S1 and S2. No gallops, murmurs, or rubs. Normal PMI, no JVD. No pulse deficits. Respiratory: Lungs have equal breath sounds bilaterally, clear to auscultation and percussion. No rales, rhonchi or wheezes noted. No increased work of breathing, no retractions or nasal flaring. Abdomen/GI: epigastric abd pian and ttp, otherwise Soft, non-tender, with normal bowel sounds. No distension or tympany. No guarding or rebound. Back: No spinal tenderness. No costovertebral tenderness. Full range of motion. MS/ Extremity: Pulses equal, no cyanosis. Neurovascular intact. Full, normal range of motion. Neuro: Awake and alert, GCS 15, oriented to person, place, time, and situation. Cranial nerves II-XII grossly intact. Motor strength 5/5 in all extremities. Sensory grossly intact. Cerebellar exam normal. Normal gait. Vital Signs: 17:39 BP 128 / 50; Pulse 93; Resp 15; Temp 97.9; Pulse Ox 99% on R/A; jl7 20:00 BP 148 / 53; Pulse 88; Resp 18; Pulse Ox 96% ; wh 21:30 BP 150 / 51; Pulse 92; Resp 18; Pulse Ox 97% on R/A; wh MDM: 17:44 Patient medically screened. ma2 17:44 Differential diagnosis: diverticulitis, gastritis, gastroesophageal reflux disease, ma2 Irritable bowel syndrome, pancreatitis, urinary tract infection. 20:55 Data reviewed: vital signs, nurses notes, lab test result(s), radiologic studies, CT jr8 scan. Data interpreted: Pulse oximetry: on room air is 99 %. Interpretation: normal. Counseling: I had a detailed discussion with the patient and/or guardian regarding: the historical points, exam findings, and any diagnostic results supporting the discharge/admit diagnosis, lab results, radiology results, the need for outpatient follow up, a family practitioner, a director veterinary, to return to the emergency department if symptoms worsen or persist or if there are any questions or concerns that arise at home. Response to treatment: the patient's symptoms have markedly improved after treatment, patient is well hydrated. ED course: Patient tolerating PO fluids. No pain at this time. Up and able to go to the bathroom on her own. Enteritis pattern on CT. No other acute surgical findings. Will d/c home to f/u with PCP. Will put her on Abx, zofran, and bentyl. Knows to come back if condition changes or worsens . 06/17 17:35 Order name: Basic Metabolic Panel; Complete Time: 18:55 ma2 06/17 17:35 Order name: CBC with Diff; Complete Time: 18:55 ma2 06/17 17:35 Order name: Hepatic Function; Complete Time: 18:55 ma2 06/17 17:35 Order name: Lipase; Complete Time: 18:55 ma2 06/17 18:32 Order name: Manual Differential; Complete Time: 18:55 EDMS 06/17 20:59 Order name: Urine Dipstick-Ancillary; Complete Time: 21:02 [facility] 06/17 17:35 Order name: IV Saline Lock; Complete Time: 19:02 [facility] 06/17 17:35 Order name: Labs collected and sent; Complete Time: 19:02 fl2 06/17 17:35 Order name: CT Abd/Pelvis - IV Contrast Only; Complete Time: 20:12 ma2 06/17 17:37 Order name: US Abdomen Limited; Complete Time: 20:12 fl2 06/17 17:35 Order name: Urine Dipstick-Ancillary (obtain specimen); Complete Time: 21:09 ma2 Administered Medications: 19:10 Not Given (Pt received 1000 mL NS from EMS): NS 0.9% 1000 ml IV at 1 bolus Per jl7 protocol; 1000 mL bolus 19:43 Drug: Zosyn 3.375 grams Route: IVPB; Infused Over: 60 mins; Site: left antecubital; 21:43 Follow up: Response: No adverse reaction; IV Status: Completed infusion 19:43 Drug: Potassium Chloride 10 mEq Route: IV; Rate: calculated rate; Site: right forearm; 21:43 Follow up: Response: No adverse reaction; IV Status: Completed infusion 20:12 Drug: Pepcid (famotidine) 20 mg Route: IVP; Site: left antecubital; 21:42 Follow up: Response: No adverse reaction Disposition: 06/17/20 21:02 Discharged to Home. Impression: Acute Gastroenteritis. - Condition is Stable. - Discharge Instructions: Viral Gastroenteritis, Adult. - Prescriptions for Bentyl 20 mg Oral Tablet - take 1 tablet by ORAL route every 6 hours As needed; 20 tablet. Cipro 500 mg Oral Tablet - take 1 tablet by ORAL route every 12 hours for 10 days; 20 tablet. Zofran 4 mg Oral Tablet - take 1 tablet by ORAL route every 12 hours As needed; 20 tablet. - Medication Reconciliation Form, Thank You Letter, Antibiotic Education, Prescription Opioid Use form. - Follow up: Kenneth Savage DO; When: 2 - 3 days; Reason: Recheck today's complaints, Continuance of care, Re-evaluation by your physician. - Problem is new. - Symptoms have improved. Addendum: 06/19/2020 18:40 Co-signature as Attending Physician, Shanda Foote MD. rebecca a2 Signatures: Dispatcher [employer] EDBiju Bingham PA PA jr8 Tomás Hudson, RN RN jl7 Ben Nava RN RN Shanda Foote MD MD ma2 Corrections: (The following items were deleted from the chart) 06/17 21:46 21:02 06/17/2020 21:02 Discharged to Home. Impression: Acute Gastroenteritis. Condition is Stable. Forms are Medication Reconciliation Form, Thank You Letter, Antibiotic Education, Prescription Opioid Use. Follow up: Kenneth Savage; When: 2 - 3 days; Reason: Recheck today's complaints, Continuance of care, Re-evaluation by your physician. Problem is new. Symptoms have improved. jr8
--- NOTE | 2020-06-17 21:03 | ER ---
Nurse's Notes [facility] Name: Carri Perez Age: 70 yrs Sex: Female : 1950 Arrival Date: 06/17/2020 Time: 17:34 Bed 2 Private MD: Kenneth Savage Diagnosis: Acute Gastroenteritis Presentation: 06/17 17:39 Chief complaint: EMS states: Toned out for N/V after eating, pt reports having diarrhea jl7 x 1 day, Phenergan 12.5 IVP given with good results. Coronavirus screen: Client denies travel out of the [place] in the last 14 days. Client presents with at least one sign or symptom that may indicate coronavirus-19. Ebola Screen: No symptoms or risks identified at this time. Initial Sepsis Screen: Does the patient meet any 2 criteria? No. Patient's initial sepsis screen is negative. Does the patient have a suspected source of infection? No. Patient's initial sepsis screen is negative. Risk Assessment: Do you want to hurt yourself or someone else? Patient reports no desire to harm self or others. Onset of symptoms was June 17, 2020. Care prior to arrival: Medication(s) given: Normal saline infusion, 1000 mL, Phenergan, 12.5 mg, IV initiated. 22 GA, in the left antecubital area, Glucose check: 236. Transition of care: patient was not received from another setting of care. 17:39 Method Of Arrival: EMS: [facility] jl7 17:39 Acuity: ELOISE 3 jl7 Triage Assessment: 17:44 General: Appears in no apparent distress. uncomfortable, Behavior is cooperative, jl7 drowsy. Pain: Complains of pain in abdomen. Neuro: Level of Consciousness is obeys commands, Drowsy. Oriented to person, place, time, situation. Cardiovascular: Patient's skin is warm and dry. Respiratory: Airway is patent Respiratory effort is even, unlabored, Respiratory pattern is regular, symmetrical. GI: Abdomen is round non-distended, Reports diarrhea, nausea, vomiting. Derm: Skin is pink, warm \T\ dry. Historical: - Allergies: 17:44 PENICILLINS; jl7 - PMHx: 17:44 Diabetes - NIDDM; jl7 - Immunization history:: Adult Immunizations unknown. - Social history:: Smoking status: unknown. - Family history:: not pertinent. Screenin:45 Abuse screen: Denies threats or abuse. Denies injuries from another. Nutritional jl7 screening: No deficits noted. Tuberculosis screening: No symptoms or risk factors identified. Fall Risk IV access (20 points). Total Sharp Fall Scale indicates No Risk (0-24 pts). Assessment: 17:45 General: See triage assessment. jl7 19:10 General: Appears in no apparent distress. Behavior is calm, cooperative, appropriate wh for age. Pain: Complains of pain in abdomen. Neuro: Level of Consciousness is awake, alert, obeys commands, Oriented to person, place, time, situation. Cardiovascular: Capillary refill < 3 seconds. Respiratory: Airway is patent Respiratory effort is even, unlabored, Respiratory pattern is regular, symmetrical. GI: Abdomen is flat, non-distended, Reports lower abdominal pain, upper abdominal pain, diarrhea, nausea, vomiting. : No signs and/or symptoms were reported regarding the genitourinary system. EENT: No signs and/or symptoms were reported regarding the EENT system. Derm: Skin is intact, is healthy with good turgor, Skin is pink, warm \T\ dry. normal. Musculoskeletal: Circulation, motion, and sensation intact. 21:00 Reassessment: Patient appears in no apparent distress at this time. No changes from previously documented assessment. Patient and/or family updated on plan of care and expected duration. Pain level reassessed. Patient is alert, oriented x 3, equal unlabored respirations, skin warm/dry/pink. Vital Signs: 17:39 BP 128 / 50; Pulse 93; Resp 15; Temp 97.9; Pulse Ox 99% on R/A; jl7 20:00 BP 148 / 53; Pulse 88; Resp 18; Pulse Ox 96% ; 21:30 BP 150 / 51; Pulse 92; Resp 18; Pulse Ox 97% on R/A; ED Course: 17:34 Patient arrived in ED. ds1 17:34 Shanda Foote MD is Attending Physician. ma2 17:39 Tomás Hudson RN is Primary Nurse. jl7 17:43 Triage completed. jl7 17:44 Arm band placed on right wrist. jl7 17:45 Patient has correct armband on for positive identification. Bed in low position. Call [facility] light in reach. Side rails up X2. spa consultant on. Pulse ox on. NIBP on. Warm blanket given. 18:15 Initial lab(s) drawn, by me, sent to lab. Inserted saline lock: 20 gauge in right 7 antecubital area, using aseptic technique. Blood collected. 18:48 US Abdomen Limited In Process Unspecified. EDMS 19:06 Biju Vora PA is PHCP. jr8 19:53 CT Abd/Pelvis - IV Contrast Only In Process Unspecified. EDMS 19:55 Primary Nurse role handed off by Tomás Hudson RN 20:26 Kenneth Savage DO is Private Physician. 21:01 Kenneth Savage DO is Referral Physician. [facility] 21:45 No provider procedures requiring assistance completed. IV discontinued, intact, bleeding controlled, No redness/swelling at site. Administered Medications: 19:10 Not Given (Pt received 1000 mL NS from EMS): NS 0.9% 1000 ml IV at 1 bolus Per [facility] protocol; 1000 mL bolus 19:43 Drug: Zosyn 3.375 grams Route: IVPB; Infused Over: 60 mins; Site: left antecubital; 21:43 Follow up: Response: No adverse reaction; IV Status: Completed infusion 19:43 Drug: Potassium Chloride 10 mEq Route: IV; Rate: calculated rate; Site: right forearm; 21:43 Follow up: Response: No adverse reaction; IV Status: Completed infusion 20:12 Drug: Pepcid (famotidine) 20 mg Route: IVP; Site: left antecubital; 21:42 Follow up: Response: No adverse reaction Outcome: 21:02 Discharge ordered by . jrStephie 21:45 Discharged to home via wheelchair. 21:45 Condition: stable 21:45 Discharge instructions given to patient, Instructed on discharge instructions, follow up and referral plans. medication usage, POC Demonstrated understanding of instructions, follow-up care, medications, POC Prescriptions given X 3. 21:46 Patient left the ED. Signatures: Dispatcher [employer] EDMS Henok Nguyen RN RN Hardeep, Barbara ds1 Biju Vora PA PA jr8 Tomás Hudson RN RN [facility] [place], Winsy, RN Shanda Vizcarra MD MD ma2 Corrections: (The following items were deleted from the chart) 19:14 17:15 General: See triage assessment. [place] [id number] : 17:15 Patient has correct armband on for positive identification. Bed in low position. [facility] Call light in reach. Side rails up X2. [facility] : 17:15 spa consultant on. Pulse ox on. NIBP on. [place] [id number] : 17:15 Warm blanket given. [place] [id number] : 17:15 Abuse screen: Denies threats or abuse. Denies injuries from another. [place] [id number] : 17:15 Nutritional screening: No deficits noted. [place] [id number] : 17:15 Tuberculosis screening: No symptoms or risk factors identified. [place] [id number] :15 17:15 Fall Risk IV access (20 points). Total Sharp Fall Scale indicates No Risk (0-24 [facility] pts). [facility]
[2020-06-18 11:31] VITALS: TEMP 97.9
[2020-06-18 11:34] VITALS: BP 150/51; O2SAT 97
== END 2020-06-17 21:46 | disposition home or self-care (01) ==
LOC: ER 17:33
DX: K52.9 Noninfective gastroenteritis and colitis, unspecified (principal); E11.9 Type 2 diabetes mellitus without complications; Z88.0 Allergy status to penicillin
CPT/HCPCS: 85025; 80048; 36415; 80076; 81003; 83690; 74177; 76705; 99284; Q9967; J3480; J2543; J7030